=== PATIENT | male | born 1970 | race Caucasian/White ===

== ENCOUNTER 2024-09-03 15:52 | Emergency (ER) | payer OTHER, SELFPAY ==
[2024-09-03 15:59] VITALS: BP 153/93; BP 155/78; PULSE 95; PULSE 96; RESP 18; TEMP 36.6; O2SAT 94; O2SAT 97; BMI 33.0
[2024-09-03 16:04] LABS: Glucose, Whole Blood 414 mg/dL (60-115)
[2024-09-03 17:11] LABS: MANUAL DIFF FLAG NO
[2024-09-03 17:13] LABS: Basophils Percent Auto 0.4 % (0-2); Eosinophils Absolute Auto 0.1 X10*3/uL (0.0-0.4); Eosinophils Percent Auto 0.7 % (0-4); Hematocrit 45.4 % (42.0-52.0); Hemoglobin 15.5 g/dl (14.0-18.0); Imm Gran Abs Auto 0.02 X10*3/uL (0.00-0.03); Imm Gran Pct Auto 0.2 % (0.0-0.4); Lymphocytes Absolute Auto 2.5 X10*3/uL (1.2-4.9); Lymphocytes Percent Auto 30.5 % (20-40); Mean Corpuscular HGB Conc 34.1 g/dl (31.0-36.0); Mean Corpuscular Hemoglobin 30.9 pg (27.0-33.0); Mean Corpuscular Volume 90.6 fL (80.0-98.0); Mean Platelet Volume 9.8 fL (9.4-12.4); Monocytes Absolute Auto 1.1 X10*3/uL (0.1-1.2); Monocytes Percent Auto 13.8 % (2-11); Neutrophils Absolute Auto 4.4 x10*3/uL (2.0-8.3); Neutrophils Percent Auto 54.4 % (45-73); Platelet Count 315 X10*3/uL (160-400); Red Blood Count 5.01 X10*6/uL (4.60-5.80); Red Cell Distribution Width 13.5 % (11.0-16.0)
[2024-09-03 17:14] LABS: Venous Blood Gas Refer to POC result
[2024-09-03 17:15] LABS: VBG Base Excess -0.5 mmol/L; VBG HCO3 26 mmol/L (22-26); VBG pCO2 48 mmHg; VBG pH 7.33 (7.32-7.43); VBG pO2 33 mmHg
--- NOTE | 2024-09-03 17:22 | ED_ITS ---
HPI - General Adult General Chief complaint: General Medical Stated complaint: no insulin x2 days, hypergylcemia BGL 450 Time Seen by Provider: 09/03/24 17:15 Source: patient Mode of arrival: EMS Limitations: no limitations History of Present Illness ED Provider: mikael CORNELIUS narrative: Patient's history of diabetes schizoaffective disorder with colostomy bag from previous Rectal surgery homeless comes here as he missed his insulin last 2 days was occluded [facility] supposed to go to long term and in between medicine boxes missing EMS checked the blood sugar was 414 no active vomiting patient is hungry asking for the food Related Data Allergies Allergy/AdvReac Type Severity Reaction Status Date / Time haloperidol [From Haldol] Allergy Anaphylaxis Verified 09/03/24 16:06 ketorolac [From Toradol] Allergy Anaphylaxis Verified 09/03/24 16:06 ibuprofen [From Motrin] AdvReac Nausea and Verified 09/03/24 16:06 Vomiting morphine AdvReac Hallucinati Verified 09/03/24 16:06 ons Review of Systems 2 Review of Systems: Yes all other systems are reviewed and are negative [facility] Social History Social History Advance Directives: No Advance Directives Information Provided: No Do you have a plan to hurt others: No Plan Physical Exam ED Vital Signs: Vital Signs - 24 hr 09/03/24 15:59 Temperature 97.9 F Pulse Rate 96 Respiratory Rate 18 Blood Pressure 155/78 H Pulse Oximetry 94 Oxygen Delivery Method Room Air BMI result Body Mass Index 33.0 Appearance: Alert. Oriented X3. No acute distress. Unkept Eyes: No pallor or icterus ENT: Pharynx normal. Oral Mucosa moist Neck: Normal inspection. Neck supple. CVS: Normal heart rate and rhythm. Pulses normal. Respiratory: No respiratory distress. Equal air entry bilateral, no wheezing/rales/rhonchi Abdomen: Soft and nontender. Bowel sounds are present, no mass palpable, no CVA tenderness colostomy bag in place Skin: Skin warm and dry. Normal skin color. Normal skin turgor. Extremities: No lower extremity edema. No calf tenderness Neuro: Oriented X 3. No motor deficit. No sensory deficit.No cerebellar signs , cranial nerves II-XII intact Medications Administered Discontinued Medications Generic Name Dose Route Start Last Admin Trade Name Freq PRN Reason Stop Dose Admin Insulin Glargine 40 unit 09/03/24 17:59 09/03/24 18:07 Insulin Glargine,Hum.Rec.Anlog 100 Unit/Ml 10 Ml Vial SUBCUT 09/03/24 18:00 40 unit ONCE ONE Administration Insulin Human Lispro 14 unit 09/03/24 17:24 09/03/24 17:39 Insulin Lispro 100 Unit/Ml 3 Ml Vial SUBCUT 09/03/24 17:25 14 unit ONCE ONE Administration Medical Decision Making Medical Decision Making MDM Narrative: Patient is diabetic with hyperglycemia unable to get his insulin for last 2 days says that he has a insulin in his belongings but unable to get it today in the morning he will get it does not want any prescription at does have the insulin and medications with him Lab Data MDM Lab Attestation statement: I reviewed the patient's lab results. 09/03/24 17:06 09/03/24 17:06 Labs: Lab Results 09/03/24 09/03/24 09/03/24 Range/Units 16:01 17:06 17:11 WBC 8.0 (4.8-10.8) X10*3/uL RBC 5.01 (4.60-5.80) X10*6/uL Hgb 15.5 (14.0-18.0) g/dl Hct 45.4 (42.0-52.0) % MCV 90.6 (80.0-98.0) fL MCH 30.9 (27.0-33.0) pg MCHC 34.1 (31.0-36.0) g/dl RDW 13.5 (11.0-16.0) % Plt Count 315 (160-400) X10*3/uL MPV 9.8 (9.4-12.4) fL Immature Gran % (Auto) 0.2 (0.0-0.4) % Neut % (Auto) 54.4 (45-73) % Lymph % (Auto) 30.5 (20-40) % [place] % (Auto) 13.8 H (2-11) % Eos % (Auto) 0.7 (0-4) % Baso % (Auto) 0.4 (0-2) % Lymph # (Auto) 2.5 (1.2-4.9) X10*3/uL [place] # (Auto) 1.1 (0.1-1.2) X10*3/uL Eos # (Auto) 0.1 (0.0-0.4) X10*3/uL Baso # (Auto) 0.0 (0.0-0.2) X10*3/uL Abs Immat Gran (auto) 0.02 (0.00-0.03) X10*3/uL Absolute Neuts (auto) 4.4 (2.0-8.3) x10*3/uL Absolute Nucleated RBC 0.000 (0.0-0.012) X10*3/uL Nucleated RBC % (auto) 0.0 (0.0-0.2) /100WBC VBG pH 7.33 (7.32-7.43) VBG pCO2 48 mmHg VBG pO2 33 mmHg VBG HCO3 26 (22-26) mmol/L VBG O2 Saturation 40.0 % VBG Base Excess -0.5 mmol/L Sodium 129 L (135-145) mmol/L Potassium 5.5 H (3.3-5.1) mmol/L Chloride 98 (96-108) mmol/L Carbon Dioxide 21 L (22-29) mmol/L Anion Gap 16 (12-20) BUN 21 H (9-16) mg/dL Creatinine 0.95 (0.5-1.4) mg/dL Estim Creat Clear Calc 111.3 Estimated GFR > 60 POC Glucose 414 H* (60-115) mg/dL Random Glucose 421 H* (60-115) mg/dL Calcium 10.5 H (8.4-10.2) mg/dL Magnesium 1.9 (1.6-2.6) mg/dL Total Bilirubin 1.3 H (0.0-1.0) mg/dL Direct Bilirubin 0.4 (0.0-0.5) mg/dL AST 40 H (5-37) U/L ALT 42 H (0-40) U/L Alkaline Phosphatase 136 H (39-117) U/L Total Protein 8.5 H (6.5-8.0) g/dL Albumin 4.3 (3.5-5.0) g/dL Lipase 22 (8-78) U/L Beta-Hydroxybutyrate 0.24 (0.02-0.27) mmol/L Urine Color Urine Appearance Urine pH (5.0-9.0) Ur Specific [place] (1.005-1.025) Urine Protein (Neg-Trace) mg/dL Urine Glucose (UA) (Negative) mg/dL Urine Ketones (Negative) mg/dL Urine Blood (Negative) Urine Nitrite (Negative) Ur Leukocyte Esterase (Negative) 09/03/24 09/03/24 Range/Units 17:45 18:23 WBC (4.8-10.8) X10*3/uL RBC (4.60-5.80) X10*6/uL Hgb (14.0-18.0) g/dl Hct (42.0-52.0) % MCV (80.0-98.0) fL MCH (27.0-33.0) pg MCHC (31.0-36.0) g/dl RDW (11.0-16.0) % Plt Count (160-400) X10*3/uL MPV (9.4-12.4) fL Immature Gran % (Auto) (0.0-0.4) % Neut % (Auto) (45-73) % Lymph % (Auto) (20-40) % [place] % (Auto) (2-11) % Eos % (Auto) (0-4) % Baso % (Auto) (0-2) % Lymph # (Auto) (1.2-4.9) X10*3/uL [place] # (Auto) (0.1-1.2) X10*3/uL Eos # (Auto) (0.0-0.4) X10*3/uL Baso # (Auto) (0.0-0.2) X10*3/uL Abs Immat Gran (auto) (0.00-0.03) X10*3/uL Absolute Neuts (auto) (2.0-8.3) x10*3/uL Absolute Nucleated RBC (0.0-0.012) X10*3/uL Nucleated RBC % (auto) (0.0-0.2) /100WBC VBG pH (7.32-7.43) VBG pCO2 mmHg VBG pO2 mmHg VBG HCO3 (22-26) mmol/L VBG O2 Saturation % VBG Base Excess mmol/L Sodium (135-145) mmol/L Potassium (3.3-5.1) mmol/L Chloride (96-108) mmol/L Carbon Dioxide (22-29) mmol/L Anion Gap (12-20) BUN (9-16) mg/dL Creatinine (0.5-1.4) mg/dL Estim Creat Clear Calc Estimated GFR POC Glucose 413 H* (60-115) mg/dL Random Glucose (60-115) mg/dL Calcium (8.4-10.2) mg/dL Magnesium (1.6-2.6) mg/dL Total Bilirubin (0.0-1.0) mg/dL Direct Bilirubin (0.0-0.5) mg/dL AST (5-37) U/L ALT (0-40) U/L Alkaline Phosphatase (39-117) U/L Total Protein (6.5-8.0) g/dL Albumin (3.5-5.0) g/dL Lipase (8-78) U/L Beta-Hydroxybutyrate (0.02-0.27) mmol/L Urine Color Yellow Urine Appearance Clear Urine pH 5.5 (5.0-9.0) Ur Specific [place] >= 1.030 H (1.005-1.025) Urine Protein 30 (1+) H (Neg-Trace) mg/dL Urine Glucose (UA) >=1000 H (Negative) mg/dL Urine Ketones Negative (Negative) mg/dL Urine Blood Negative (Negative) Urine Nitrite Negative (Negative) Ur Leukocyte Esterase Negative (Negative) Discharge Plan Discharge Clinical Impression: Diabetes mellitus with hyperglycemia Patient Disposition: Home, Self-Care Instructions: Diabetic Hyperglycemia (ED) Additional Instructions: Drink plenty of fluids Take your insulin as prescribed on time Follow up with your PCP Print Language: Montserratian
[2024-09-03 17:37] LABS: Alanine Aminotransferase 42 U/L (0-40); Albumin Level 4.3 g/dL (3.5-5.0); Alkaline Phosphatase 136 U/L (39-117); Anion Gap 16 (12-20); Aspartate Amino Transferase 40 U/L (5-37); Beta-Hydroxybutyrate 0.24 mmol/L (0.02-0.27); Bilirubin Direct 0.4 mg/dL (0.0-0.5); Bilirubin Total 1.3 mg/dL (0.0-1.0); Blood Urea Nitrogen 21 mg/dL (9-16); Calcium 10.5 mg/dL (8.4-10.2); Carbon Dioxide 21 mmol/L (22-29); Chloride 98 mmol/L (96-108); Creatinine Clr Calc Pharmacy 111.3; Estimated Glomerular Filt Rate > 60; Glucose Random 421 mg/dL (60-115); Lipase 22 U/L (8-78); Magnesium 1.9 mg/dL (1.6-2.6); Potassium 5.5 mmol/L (3.3-5.1); Sodium 129 mmol/L (135-145); Total Protein 8.5 g/dL (6.5-8.0)
[2024-09-03] MEDS: Insulin Lispro 100 UNIT/ML 3 ML VIAL 14 UNIT SUBCUT (17:39)
--- NOTE | 2024-09-03 17:41 | PC.NURSE ---
insulin administered per provider order. will reassess.
[2024-09-03] MEDS: Insulin Glargine,Hum.rec.anlog 100 UNIT/ML 10 ML VIAL 40 UNIT SUBCUT (18:07)
[2024-09-03 18:14] LABS: Appearance Urine Clear; Color Urine Yellow; Glucose Urine UA >=1000 mg/dL (Negative); Leukocyte Esterase Urine Negative (Negative); Nitrite Urine Negative (Negative); PH 5.5 (5.0-9.0); Specific Gravity - Urine >= 1.030 (1.005-1.025); UMIC TRIGGER UACC YES; Urine Blood Negative (Negative); Urine Ketones Negative (Negative); Urine Protein 30 (1+) mg/dL (Neg-Trace)
[2024-09-03 18:27] LABS: Glucose, Whole Blood 413 mg/dL (60-115)
[2024-09-03] MEDS: Insulin Lispro 100 UNIT/ML 3 ML VIAL 16 UNIT SUBCUT (18:35)
[2024-09-03 19:06] VITALS: BP 122/83; PULSE 98; RESP 16; TEMP 37.1; O2SAT 97
[2024-09-03 19:09] LABS: Glucose, Whole Blood 384 mg/dL (60-115)
--- NOTE | 2024-09-03 19:11 | PC.NURSE ---
pt remains hyperglycemic despite previous medication administrations. provider notified/aware. will reassess.
[2024-09-03 19:34] LABS: Bacteria Urine None Seen (None Seen); RBC Urine 0-2 /HPF (0-2); Squamous Epithelial Cell Urine 0-2 /HPF (0-2); WBC Urine 0-5 /HPF (0-5)
[2024-09-03 19:59] LABS: Glucose, Whole Blood 310 mg/dL (60-115)
== END 2024-09-03 20:15 | disposition home or self-care (01) ==
PROVIDERS: Physician Assistant; Emergency Provider Internal Medicine; PCP Physician Assistant
DX: E11.65 Type 2 diabetes mellitus with hyperglycemia (principal); Z59.00 Homelessness unspecified; Z79.899 Other long term (current) drug therapy; Z79.4 Long term (current) use of insulin
CPT/HCPCS: 36415; 80048; 80076; 81001; 82010; 82803; 82947; 83690; 83735; 85025; 99284

== ENCOUNTER 2025-07-17 12:11 | Emergency (ER) | payer MEDICAID, OTHER, SELFPAY ==
--- NOTE | ~2025-07-17 | XR_ITS ---
EXAMINATION: XR CHEST CLINICAL INFORMATION: chest pain COMPARISON: None available. TECHNIQUE: PA and lateral views FINDINGS: No consolidation, pleural effusion or pneumothorax. No hyperinflation. Cardiomediastinal silhouette size is normal. Multilevel marginal osteophyte formation and syndesmophyte formation and endplate sclerosis throughout the axial skeleton. XR/XR chest 2V IMPRESSION: No acute airspace disease. Multilevel spondylosis. Electronically signed by: Ceferino Macias MD 07/17/2025 01:46 PM EDT
--- NOTE | 2025-07-17 12:37 | ECG_ITS ---
Test Reason : PISD Blood Pressure : */* mmHG Vent. Rate : 103 BPM Atrial Rate : 103 BPM P-R Int : 150 ms QRS Dur : 108 ms QT Int : 374 ms P-R-T Axes : 49 -44 55 degrees QTcB Int : 489 ms Sinus tachycardia Left axis deviation Abnormal ECG No previous ECGs available Referred By: Reagan Perez Electronically Signed By: ANG MARSHALL MD
--- NOTE | 2025-07-17 12:39 | ED_ITS ---
HPI - Psych General Chief Complaint: Psychiatric Symptoms Stated Complaint: Chest pain Time Seen by Provider: 07/17/25 12:23 Source: EMS Mode of arrival: EMS History of Present Illness HPI Narrative: This is a 55 years old male with a history of schizoaffective disorder, history of diabetes, history of ileostomy bag sent by the nursing facility [facility] for crisis evaluation. Per EMS reports he was paranoid and for this reason was sent for psych eval evaluation. At this time he is denies SI and HI he is very disorganizid a kid was selling gun at the rehab . Also is stating that he had chest pain for about 2 weeks. MD complaint: hallucinations Onset (ago): day(s) (1) Duration: constant Relieving factors: none Exacerbating factors: none Associated psychiatric symptoms: racing thoughts and delusions Associated symptoms: denies other symptoms Treatments prior to arrival: none Related Data Home Medications ?Medication ?Instructions ?Recorded ?Confirmed Flomax 0.4 mg PO QPM 07/17/2507/17 insulin glargine 100 unit/mL (3 44 unit subcut BID 08/3107/17/25 mL) subcutaneous pen (Lantus Solostar U-100 Insulin) insulin lispro 100 unit/mL 8 unit subcut TIDWMEAL 07/0807/17/25 subcutaneous pen (Humalog KwikPen (U-100) Insulin) insulin lispro 100 unit/mL See Protocol subcut TIDWMEA L 07/17/25 07/17/25 subcutaneous solution (Humalog U-100 Insulin) lisinopril 10 mg tablet (Zestril) 10 mg PO QAM 5 07/17/25 pantoprazole 40 mg tablet,delayed 40 mg PO DAILY 07/1707/17/25 release Allergies Allergy/AdvReac Type Severity Reaction Status Date / Time haloperidol (From Haldol) Allergy Anaphylaxis Verified 07/17/25 12:56 ketorolac (From Toradol) Allergy Anaphylaxis Verified 07/17/25 12:56 ibuprofen (From Motrin) AdvReac Nausea and Verified 07/17/25 12:56 Vomiting morphine AdvReac Hallucinati Verified 07/17/25 12:56 ons Review of Systems 2 Review of Systems: Yes Unobtainable due to mental condition PMFSH Past Medical History [facility] Narrative: Schizoaffective disorder, diabetes, history of small-bowel obstruction, he has a ileostomy, Social History Social History Alcohol intake: former Smoked in Last 30 Days: No Use of substances other than those prescribed or required for medical reasons: Yes Substance Use Type: Marijuana Substance Use Frequency: Chronic Longstanding Advance Directives: No Advance Directives Information Provided: Yes Physical Exam 2 Exam: Exam: He looks well is not toxic-appearing sitting in the chair in no distress Vital Signs: Vital Signs: Last Vital Signs Temp 97.0 F 07/17/25 17:44 Pulse 88 07/17/25 17:44 Resp 20 07/17/25 17:44 BP 121/66 07/17/25 17:44 Pulse Ox 95 07/17/25 12:52 O2 Del Method Room Air 07/17/25 12:52 BMI result Body Mass Index 20.7 Const: General: cooperative Nutritional Appearance: well nourished O rientation/consciousness: patient oriented x3 HEENT: Head: Yes normal to inspection Ears: hearing grossly normal bilaterally General nose exam: Normal external nose present Mouth: Normal oral and palatal mucosa present Neck: Neck: Yes normal visual inspection Chest: Chest palpation & inspection: normal inspection of the chest Resp: Effort & Inspection: normal respiratory effort Auscultation: clear to auscultation bilaterally Cardio: Jugular venous distension: no JVD Rate: regular rate Rhythm: r egular rhythm GI: Other: Chronic abdominal wound midline Ileostomy bag present midline, lower abdominal healing wound present Inspection: Yes normal to inspection Palpation (GI): Soft to palpation, not firm, nontender and no guarding Neuro: General: patient oriented x3 Psych: Affect: Anxious affect present Attitude: cooperative Thought process: Illogical thought process present and Loose association thought process present Thought content: suicidality, no homicidality and Paranoid delusions present Course Reevaluation(s) Reevaluation #1: cleared by psych will d/c back to MD Medications Administered Discontinued Medications Generic Name Dose Route Start Last Admin Trade Name Freq PRN Reason Stop Dose Admin Insulin Human Lispro 10 unit 07/17/25 13:54 07/17/25 14:00 Insulin Lispro 100 Unit/Ml 3 Ml Vial SUBCUT 07/17/25 13:55 10 unit ONCE ONE Administration Medical Decision Making Medical Decision Making [facility] Narrative: Patient is here for psych evaluation we will obtain in the labs for medical clearance EKG and we will consult crisis Differential Diagnosis Differential Diagnoses: The differential diagnosis associated with the presentation includes Paranoia/anxiety Admission/Observation Consideration of admission/observation: Escalation of care including admission/observation considered Lab Data 07/17/25 13:16 07/17/25 13:16 Labs: Lab Results 07/17/25 07/17/25 07/17/25 Range/Units 13:15 13:16 13:24 WBC 9.5 (4.8-10.8) X10*3/uL RBC 4.28 L (4.60-5.80) X10*6/uL Hgb 12.9 L (14.0-18.0) g/dl Hct 38.3 L (42.0-52.0) % MCV 89.5 (80.0-98.0) fL MCH 30.1 (27.0-33.0) pg MCHC 33.7 (31.0-36.0) g/dl RDW 14.4 (11.0-16.0) % Plt Count 345 (160-400) X10*3/uL MPV 10.0 (9.4-12.4) fL Immature Gran % (Auto) 0.2 (0.0-0.4) % Neut % (Auto) 66.9 (45-73) % Lymph % (Auto) 17.5 L (20-40) % [place] % (Auto) 12.5 H (2-11) % Eos % (Auto) 2.1 (0-4) % Baso % (Auto) 0.8 (0-2) % Lymph # (Auto) 1.7 (1.2-4.9) X10*3/uL [place] # (Auto) 1.2 (0.1-1.2) X10*3/uL Eos # (Auto) 0.2 (0.0-0.4) X10*3/uL Baso # (Auto) 0.1 (0.0-0.2) X10*3/uL Abs Immat Gran (auto) 0.02 (0.00-0.03) X10*3/uL Absolute Neuts (auto) 6.3 (2.0-8.3) x10*3/uL Absolute Nucleated RBC 0.000 (0.0-0.012) X10*3/uL Nucleated RBC % (auto) 0.0 (0.0-0.2) /100WBC Sodium 136 (135-145) mmol/L Potassium 4.2 D (3.3-5.1) mmol/L Chloride 103 (96-108) mmol/L Carbon Dioxide 24 (22-29) mmol/L Anion Gap 13 (12-20) BUN 10 (9-16) mg/dL Creatinine 0.62 (0.5-1.4) mg/dL Estim Creat Clear Calc 129.0 Estimated GFR > 60 POC Glucose 311 H (60-115) mg/dL Random Glucose 345 H (60-115) mg/dL Calcium 9.2 D (8.4-10.2) mg/dL Total Bilirubin 1.3 H (0.0-1.0) mg/dL AST 31 (5-37) U/L ALT 37 (0-40) U/L Alkaline Phosphatase 235 H (39-117) U/L Troponin I High Sens 5.3 (<3.5-35.0) ng/L Total Protein 7.6 (6.5-8.0) g/dL Albumin 4.1 (3.5-5.0) g/dL Urine Color Yellow Urine Appearance Clear Urine pH 5.5 (5.0-9.0) Ur Specific [place] >= 1.030 H (1.005-1.025) Urine Protein Negative (Neg-Trace) mg/dL Urine Glucose (UA) >=1000 H (Negative) mg/dL Urine Ketones Negative (Negative) mg/dL Urine Blood Trace H (Negative) Urine Nitrite Negative (Negative) Ur Leukocyte Esterase Negative (Negative) Urine RBC 0-2 (0-2) /HPF Urine WBC 0-5 (0-5) /HPF Ur Squamous Epith Cells 0-2 (0-2) /HPF Urine Bacteria None Seen (None Seen) Hyaline Casts 0-2 (0-2) /LPF Urine Opiates Screen Not Detected (Not Detect) Ur Buprenorphine Scrn Not Detected (Not Detect) ng/mL Ur Oxycodone Screen Not Detected (Not Detect) ng/mL Urine Methadone Screen Not Detected (Not Detect) ng/mL Urine Fentanyl Screen Not Detected (Not Detect) Ur Barbiturates Screen Not Detected (Not Detect) Ur Phencyclidine Scrn Not Detected (Not Detect) Ur Amphetamines Screen Not Detected (Not Detect) U Benzodiazepines Scrn Not Detected (Not Detect) Urine Cocaine Screen Not Detected (Not Detect) U Marijuana (THC) Screen Not Detected (Not Detect) 07/17/25 Range/Units 15:13 WBC (4.8-10.8) X10*3/uL RBC (4.60-5.80) X10*6/uL Hgb (14.0-18.0) g/dl Hct (42.0-52.0) % MCV (80.0-98.0) fL MCH (27.0-33.0) pg MCHC (31.0-36.0) g/dl RDW (11.0-16.0) % Plt Count (160-400) X10*3/uL MPV (9.4-12.4) fL Immature Gran % (Auto) (0.0-0.4) % Neut % (Auto) (45-73) % Lymph % (Auto) (20-40) % [place] % (Auto) (2-11) % Eos % (Auto) (0-4) % Baso % (Auto) (0-2) % Lymph # (Auto) (1.2-4.9) X10*3/uL [place] # (Auto) (0.1-1.2) X10*3/uL Eos # (Auto) (0.0-0.4) X10*3/uL Baso # (Auto) (0.0-0.2) X10*3/uL Abs Immat Gran (auto) (0.00-0.03) X10*3/uL Absolute Neuts (auto) (2.0-8.3) x10*3/uL Absolute Nucleated RBC (0.0-0.012) X10*3/uL Nucleated RBC % (auto) (0.0-0.2) /100WBC Sodium (135-145) mmol/L Potassium (3.3-5.1) mmol/L Chloride (96-108) mmol/L Carbon Dioxide (22-29) mmol/L Anion Gap (12-20) BUN (9-16) mg/dL Creatinine (0.5-1.4) mg/dL Estim Creat Clear Calc Estimated GFR POC Glucose 288 H (60-115) mg/dL Random Glucose (60-115) mg/dL Calcium (8.4-10.2) mg/dL Total Bilirubin (0.0-1.0) mg/dL AST (5-37) U/L ALT (0-40) U/L Alkaline Phosphatase (39-117) U/L Troponin I High Sens (<3.5-35.0) ng/L Total Protein (6.5-8.0) g/dL Albumin (3.5-5.0) g/dL Urine Color Urine Appearance Urine pH (5.0-9.0) Ur Specific [place] (1.005-1.025) Urine Protein (Neg-Trace) mg/dL Urine Glucose (UA) (Negative) mg/dL Urine Ketones (Negative) mg/dL Urine Blood (Negative) Urine Nitrite (Negative) Ur Leukocyte Esterase (Negative) Urine RBC (0-2) /HPF Urine WBC (0-5) /HPF Ur Squamous Epith Cells (0-2) /HPF Urine Bacteria (None Seen) Hyaline Casts (0-2) /LPF Urine Opiates Screen (Not Detect) Ur Buprenorphine Scrn (Not Detect) ng/mL Ur Oxycodone Screen (Not Detect) ng/mL Urine Methadone Screen (Not Detect) ng/mL Urine Fentanyl Screen (Not Detect) Ur Barbiturates Screen (Not Detect) Ur Phencyclidine Scrn (Not Detect) Ur Amphetamines Screen (Not Detect) U Benzodiazepines Scrn (Not Detect) Urine Cocaine Screen (Not Detect) U Marijuana (THC) Screen (Not Detect) Discharge Plan Discharge Clinical Impression: Schizoaffective disorder Patient Disposition: Xfer [facility] Instructions: Schizoaffective Disorder (ED) Prescriptions: No Action pantoprazole 40 mg Tablet,Delayed Release (Dr/Ec) 40 mg PO DAILY lisinopril [Zestril] 10 mg Tablet 10 mg PO QAM insulin lispro [Humalog U-100 Insulin] 100 unit/mL Solution See Protocol subcut TIDWMEAL Protocol: Insulin Correction Scale Less than or equal to 110 ---- Give (units): 0 111 to 150 Give (units): 0 151 to 200 Give (units): 2 201 to 250 Give (units): 4 251 to 300 Give (units): 6 301 to 350 Give (units): 8 Greater than 350 Give (units): 10 Call MD if Blood Glucose > : 350 Flomax 0.4 mg 0.4 mg PO QPM insulin lispro [Humalog KwikPen Insulin] 100 unit/mL insulin pen 8 unit subcut TIDWMEAL insulin glargine [Lantus Solostar U-100 Insulin] 100 unit/mL (3 mL) insulin pen 44 unit subcut BID Referrals: Carolee Abraham [Outside] Interventions: [place]-Suicide Risk Severity Scale Last Done: 07/17/25 13:12 ED Discharge Assessment Last Done: 07/17/25 17:44 Discharge Date/Time: 07/17/25 17:44 Print Language: Yakut
[2025-07-17 12:52] VITALS: BP 154/80; BP 174/92; PULSE 101; PULSE 118; RESP 18; TEMP 36.8; O2SAT 95; O2SAT 98; BMI 20.7
[2025-07-17 13:21] LABS: MANUAL DIFF FLAG NO
[2025-07-17 13:25] LABS: Hematocrit 38.3 % (42.0-52.0); Hemoglobin 12.9 g/dl (14.0-18.0); Imm Gran Abs Auto 0.02 X10*3/uL (0.00-0.03); Imm Gran Pct Auto 0.2 % (0.0-0.4); Lymphocytes Absolute Auto 1.7 X10*3/uL (1.2-4.9); Mean Corpuscular HGB Conc 33.7 g/dl (31.0-36.0); Mean Corpuscular Hemoglobin 30.1 pg (27.0-33.0); Mean Corpuscular Volume 89.5 fL (80.0-98.0); NRBC Abs Auto 0.000 X10*3/uL (0.0-0.012); NRBC Pct Auto 0.0 /100WBC (0.0-0.2); Platelet Count 345 X10*3/uL (160-400); Red Blood Count 4.28 X10*6/uL (4.60-5.80); White Blood Count 9.5 X10*3/uL (4.8-10.8)
[2025-07-17 13:25] LABS: Appearance Urine Clear; Glucose Urine UA >=1000 mg/dL (Negative); PH 5.5 (5.0-9.0); Specific Gravity - Urine >= 1.030 (1.005-1.025); UMIC TRIGGER UACC YES
[2025-07-17 13:28] LABS: Glucose, Whole Blood 311 mg/dL (60-115)
[2025-07-17 13:36] LABS: Cannabinoid Screen Urine Not Detected (Not Detect)
[2025-07-17 13:38] LABS: Alanine Aminotransferase 37 U/L (0-40); Albumin Level 4.1 g/dL (3.5-5.0); Alkaline Phosphatase 235 U/L (39-117); Anion Gap 13 (12-20); Aspartate Amino Transferase 31 U/L (5-37); Blood Urea Nitrogen 10 mg/dL (9-16); Calcium 9.2 mg/dL (8.4-10.2); Carbon Dioxide 24 mmol/L (22-29); Chloride 103 mmol/L (96-108); Creatinine Clr Calc Pharmacy 129.0; Estimated Glomerular Filt Rate > 60; Potassium 4.2 mmol/L (3.3-5.1); Sodium 136 mmol/L (135-145); Total Protein 7.6 g/dL (6.5-8.0)
[2025-07-17 13:45] LABS: Troponin-I High Sensitivity 5.3 ng/L (<3.5-35.0)
--- NOTE | 2025-07-17 14:09 | PC.NURSE ---
Arrives from [facility] for increasing paranoia. Pt denies SI/HI, AH/VH. + psych hx. Speech is tangential, talks about his roommate and facility staff blocking him from making complaints by locking [him] in a room . Pt arrived with all belongings, in addition to cooler containing all his insulin. Pt changed over into hospital attire with no issue. Abd wound from exploratory laparotomy appears to be healing well, no redness, warmth, pain around site, scant serosanguineous drainage on bandage he states was changed just prior to his departure from [facility]. Ileostomy also present, small amt of output on arrival, stoma non concerning, no evidence of infection there either. Resp even, nonlaboured, pt is speaking in full sentences, ambulating with walker with no issues. Medically cleared, CARE team at bedside currently. hX IDDM, covered for hyperglycemia. Behaviors continue to be nonconcerning. Per case mgmt, [facility] willing to take pt back.
--- NOTE | 2025-07-17 14:30 | MHC.CM.ED ---
Addendum entered by Karla Bazan 07/17/25 15:38: Cleared by Dr Perez. Can d/c back to [facility]. Patricio COOMBSS booked for 630pm. [facility] with chart. Patient, Anjali MACIAS and Dr Perez aware. Original Note: Received notification from Dr Perez that patient came to the ER due to paranoia from [facility] on [address]. However patient is denying paranoia, SI/HI and also did not come to the ER under a section 12. Dr Perez questioning if patient can return to [facility]. Referral made to [facility]. If patient is d/c'd today, he can return. If not d/c'd until tomorrow, will not be able to return until [facility] auth is obtained. Catia MACIAS and Dr Perez aware. Continue to monitor for d/c needs.
[2025-07-17 15:19] LABS: Glucose, Whole Blood 288 mg/dL (60-115)
[2025-07-17 17:44] VITALS: BP 121/66; PULSE 88; RESP 20; TEMP 36.1
== END 2025-07-17 17:44 | disposition skilled nursing facility (03) ==
PROVIDERS: Emergency Provider Emergency Medicine
DX: F25.9 Schizoaffective disorder, unspecified (principal); R07.9 Chest pain, unspecified; E11.9 Type 2 diabetes mellitus without complications; Z79.899 Other long term (current) drug therapy; Z93.2 Ileostomy status
CPT/HCPCS: 36415; 71046; 80053; 80307; 81001; 82947; 84484; 85025; 93005; 99284; 99285; S9485

== ENCOUNTER → 2025-07-17 12:37 | Outpatient (BNV) | payer MEDICAID, SELFPAY | PROVIDERS: Emergency Provider Emergency Medicine; Visit Provider Internal Medicine Cardiovascular Disease | DX: R00.0 Tachycardia, unspecified (principal) | CPT/HCPCS: 93010 ==

== ENCOUNTER → 2025-07-17 12:38 | Outpatient (BNV) | payer MEDICAID, SELFPAY | PROVIDERS: Emergency Provider Emergency Medicine; Visit Provider Radiology Diagnostic Radiology | DX: R07.9 Chest pain, unspecified (principal) | CPT/HCPCS: 71046 ==